=== PATIENT | female | born 1985 | race African-American/Black ===

== ENCOUNTER 2017-12-07 11:25 | Emergency (ER) | payer MEDICAID, OTHER ==
[~2017-12-07] VITALS: Ht 160 cm; Wt 77.3 kg
[2017-12-07 11:49] VITALS: BP 112/68
[2017-12-07] MEDS ORDERED: ACETAMINOPHEN 325MG TABLET PO PRN (12:45)
[2017-12-07 15:55] LABS: CLARITY URINE CLEAR (CLEAR); COLOR URINE YELLOW (YELLOW); KETONES URINE NEGATIVE (NEGATIVE); LEUKOCYTE ESTERASE URINE TRACE (NEGATIVE); NITRITE URINE NEGATIVE (NEGATIVE); OCCULT BLOOD URINE NEGATIVE (NEGATIVE); PH URINE 5.5 (4.5-8.0); PROTEIN URINE NEGATIVE (NEGATIVE)
== END 2017-12-07 15:59 | disposition left against medical advice (07) ==
LOC: ER 11:25
DX: O26.892 Other specified pregnancy related conditions, second trimester (principal); R10.31 Right lower quadrant pain; Z3A.19 19 weeks gestation of pregnancy
CPT/HCPCS: 76805; 81003; 99285

== ENCOUNTER 2021-03-07 08:30 | Emergency (ER) | payer OTHER ==
[~2021-03-07] VITALS: Ht 165.1 cm; Wt 76.0 kg
[2021-03-07] MEDS ORDERED: MORPHINE SULFATE 4 MG/ML CPJ (NOT FOR IM USE) IV STA (08:54)
[2021-03-07] MEDS ORDERED: ONDANSETRON HCL 4MG/2ML INJ IV STA (08:54)
[2021-03-07] MEDS ORDERED: SODIUM CHLORIDE 0.9% 1,000 ML IV ONE (09:00)
[2021-03-07] MEDS ORDERED: IBUPROFEN 800MG TABLET PO ONE (09:15)
[2021-03-07] MEDS ORDERED: IBUP-2029 MT (10:29)
[2021-03-07 10:45] VITALS: BP 130/78
== END 2021-03-07 10:45 | disposition home or self-care (01) ==
LOC: ER 08:30
DX: R07.89 Other chest pain (principal)
CPT/HCPCS: 71045; 93005; 99284; J7030